=== PATIENT | female | born 1960 | race Caucasian/White ===

== ENCOUNTER 2018-11-27 13:47 | Emergency (ER) | payer MEDICAID ==
--- NOTE | 2018-11-27 14:16 | ED Physician Chart ---
ED Chief Complaint/HPI - Patient Information Date Seen:: 11/27/18 Time Seen:: 13:50 Chief Complaint:: Fever History of Present Illness:: onset x 10 days of fever, painless red eyes, cough, S/T, and congestion; pt denies trauma, H/As, visual or gait changes, decreased vision, neck pain, C/P, SOB, Abd. Pain, A/N/V/D/C, chills, or urinary s/s; pt's last tetanus shot: < 5 years; UTD; pt is eating and urinating well; pt last urinated one hour [employer] Allergies:: Allergies Allergy/AdvReac Type Severity Reaction Status Date / Time amoxicillin Allergy Verified 05/29/16 15:52 Historian:: Patient Review:: Nurse's Note Reviewed, Old Chart Reviewed ED Review of Systems - Review of Systems General/Constitutional: Fever, No chills, No weight loss, No weakness, No diaphoresis, No edema, No loss of appetite Skin: No skin lesions, No rash, No bruising Head: No headache, No light-headedness Eyes: No loss of vision, No pain, No diplopia ENT: No earache, Nasal drainage, Sore throat, No tinnitus Neck: No neck pain, No swelling, No thyromegaly, No stiffness, No mass noted Cardio Vascular: No chest pain, No palpitations, No PND, No orthopnea, No edema Pulmonary: SOB, No cough, No sputum, No wheezing GI: No nausea, No vomiting, No diarrhea, No pain, No melena, No hematochezia, No constipation, No hematemesis G/U: No dysuria, No frequency, No hematuria, No nacturia Director Toxicology: No vaginal discharge, No abnormal vaginal bleed, No contraction Musculoskeletal: No bone or joint pain, No back pain, No muscle pain Endocrine: No polyuria, No polydipsia Psychiatric: No prior psych history, No depression, No anxiety, No suicidal ideation, No homicidal ideation, No auditory hallucination, No visual hallucination Hematopoietic: No bruising, No lymphadenopathy Allergic/Immuno: No urticaria, No angioedema Neurological: No syncope, No focal symptoms, No weakness, No paresthesia, No headache, No seizure, No dizziness, No confusion, No vertigo ED Past Medical History - Past Medical History Obtainable: Yes Past Medical History: HTN, Dyslipidemia, Thyroid disorder Family History: HTN Social History: Non Smoker, No Alcohol, No Drug Use, Single Surgical History: None Psychiatricy History: None Medication: Reviewed Family Medical History - Family Member Mother History Unknown: Yes ED Physical Exam - Physical Examination General/Constitutional: Awake, Well-developed, well-nourished, Alert, No distress, GCS 15, Non-toxic appearing, Ambulatory Head: Atraumatic Eyes: Lids, conjuctiva normal, PERRL, EOMI Other Eyes comments:: Va: 20/20 OU; Bilateral Conjunctival Injection; no FBs; Corneas: Clear; no abrasions; no FBs; PERRLA; no hyphemas; Fundi: benign; EOMs: WNL; LLL: WNL; no cellulitis Skin: Nl inspection, No rash, No skin lesions, No ecchymosis, Well hydrated, No lymphadenopathy ENMT: External ears, nose nl, TM canals nl, Nasal exam nl, Lips, teeth, gums nl , Tonsils nl Other ENMT comments:: Pharynx: Injected; no exudates; no abscesses; no FBs; + Nasal Congestion Neck: Nontender, Full ROM w/o pain, No JVD, No nuchal rigidity, No bruit, No mass, No stridor Other Neck comments:: supple; no meningeal signs; no cervical tenderness Respiratory: Nl effort/Exclusion, Clear to Auscultation, No Wheeze/Rhonchi/Rales Cardio Vascular: RRR, No murmur, gallop, rubs, NL S1 S2, Carotid/Femoral/Distal pulses equal bilaterally GI: No tenderness/rebounding/guarding, No organomegaly, No hernia, Normal BS's, Nondistended, No mass/bruits, No McBurney tenderness, Rectum exam nl Other GI comments:: no pulsatile masses : No CVA tenderness Extremities: No tenderness or effusion, Full ROM, normal strength in all extremities, No edema, Normal digits & nails Neuro/Psych: Alert/oriented, DTR's symmetric, Normal sensory exam, Normal motor strength, Judgement/insight normal, Mood normal, Normal gait, No focal deficits Other Neuro/Psych comments:: no focal signs Misc: Normal back, No paraspinal tenderness ED Labs/Radiology/EKG Results - Lab Results Comments:: Reviewed - Radiology Results Comments:: CXR: NAD - EKG Interpretations EKG Time:: 14:39 Rate & Rhythm: 81; NSR Comments:: old ASMI; non-specific st-t changes ED Septic Shock - . Is Septic Shock (SBP<90, OR Lactate>4 mmol\L) present?: No ED Reassessment (Disposition) - Reassessment Reassessment:: pt tolerated po fluids well in ER; pt is asymptomatic upon discharge Reassessment Condition:: Improved - Diagnosis Diagnosis:: Sore Throat; Pharyngitis; Cough; Conjunctivitis; Red Eyes; Bronchitis; Congestion; Sinusitis; Fever; URI - Aftercare/Follow up Instructions Aftercare/Follow-Up Instructions:: Counseled pt regarding lab results/diagnosis & need follow up, Refer to Discharge Instructions, Counseled pt & family regarding lab results/diagnosis & need follow up Medication Prescribed:: Rx: Azithromycin/Z-Pack (#6); Tobramycin Ophthalmic Eye Drops: one drop OU qid x 7 days; Tylenol/Cool Mist Vaporizer/Phenergan Cough Syrup/Salt Water Gargles: take all medications as prescribed; Fluids - Patient Disposition Discharge/Transfer:: Home Accepting Physician:: Dr. Donis notified Time Called:: 1600 Time Responded:: 16:00 Condition at Disposition:: Stable, Improved (X-Rays Instructions; RTER prn if existing s/s reoccur and/or get worse and/or any other new s/s occur; ACIs given for all above Dx; Refer to [employer]/Senior [employer]iation Protection Technician JAMES; F/U with PMD in one day or prn; RTER prn if concerned)
[2018-11-27] MEDS ORDERED: Azithromycin 500 MG in Sodium Chloride 0.9% 250 ML IV ONE (14:19)
[2018-11-27] MEDS ORDERED: Sodium Chloride 0.9% 1,000 ML IV ONE (14:19)
[2018-11-27 15:00] LABS: EOSINOPHILE ABSOLUTE 0.1 Th/cmm (0.1-0.4)
[2018-11-27 15:03] LABS: % BASOPHILS 1.9 % (0.0-2.0); % EOSINOPHILS 1.1 % (0.0-5.0); % LYMPHOCYTES 10.4 % (20.0-50.0); % MONOCYTES 5.6 % (2.0-10.0); BASOPHILE ABSOLUTE 0.2 Th/cumm (0-0.2); HEMATOCRIT 40.7 % (41.0-60); HEMOGLOBIN 13.7 gm/dL (12-16); MEAN CORPUSCULAR HEMOGLOBIN 35.3 pg (27.0-31.0); MEAN CORPUSCULAR HGB CONC 33.6 pg (28.0-36.0); MEAN PLATELET VOLUME 7.9 fl; MONOCYTE ABSOLUTE 0.5 Th/cmm (0.3-1.0); NEUTROPHILE ABSOLUTE 7.6 Th/cmm (1.8-8.0); PLATELET COUNT 288 Th/cmm (150-400); RED BLOOD COUNT 3.87 Mil/cmm (3.80-5.10); RED CELL DISTRIBUTION WIDTH 12.4 % (11.5-20.0); WHITE BLOOD COUNT 9.4 Th/cmm (4.8-10.8)
[2018-11-27 15:06] LABS: URINE SOURCE MIDSTREAM
[2018-11-27 15:12] LABS: URINE BILIRUBIN NEGATIVE (NEGATIVE); URINE BLOOD NEGATIVE (NEGATIVE); URINE GLUCOSE (UA) NEGATIVE (NEGATIVE); URINE KETONE NEGATIVE (NEGATIVE); URINE LEUKOCYTE ESTERASE NEGATIVE (NEGATIVE); URINE NITRATE NEGATIVE (NEGATIVE); URINE PROTEIN NEGATIVE (NEGATIVE); URINE UROBILINOGEN 0.2 E.U./dL (0.2 - 1.0)
[2018-11-27 15:20] LABS: ALB/GLOB RATIO 1.6 (1.0-1.8); ALBUMIN 4.3 gm/dL (3.7-5.3); ALKALINE PHOSPHATASE 112 U/L (34-104); AMYLASE SERUM 49 U/L (29-103); ANION GAP 13.2 (7.0-16.0); BILIRUBIN,TOTAL 0.6 mg/dL (0.3-1.0); BUN - UREA NITROGEN 10 mg/dL (7-25); CALCIUM SERUM 9.5 mg/dL (8.6-10.3); CARBON DIOXIDE 26.6 mEq/L (21.0-31.0); CHLORIDE 102 mEq/L (98-107); CREATININE - SERUM 0.6 mg/dL (0.6-1.2); CREATININE KINASE 394 U/L (30-223); GFR AFRICAN-AMERICAN > 60.0 ml/min (>90); GFR NON AFRICAN-AMERICAN > 60.0 ml/min; GLUCOSE 99 mg/dL (70-105); LIPASE 16 U/L (11-82); POTASSIUM SERUM 3.8 mEq/L (3.5-5.1); SGOT 34 U/L (13-39); SGPT/ALT 26 U/L (7-52); SODIUM SERUM 138 mEq/L (136-145)
[2018-11-27 15:27] LABS: MEAN CELL VOLUME 105.1 fl (81-100)
[2018-11-27 15:41] LABS: TROP I < 0.01 ng/mL (0.01-0.05)
[2018-11-27 15:43] LABS: URINE CLARITY CLEAR (CLEAR); URINE COLOR YELLOW; URINE MICROSCOPIC INDICATED? YES
[2018-11-27 15:45] LABS: URINE BACTERIA FEW /hpf (NONE SEEN); URINE EPITHELIAL CELLS MODERATE /lpf (FEW); URINE RBC 0-2 /hpf (0-5)
[2018-11-27 15:56] LABS: PROTHROMBIN TIME (TEST) 8.9 SECONDS (9.5-11.5)
[2018-11-27 15:59] LABS: INR < 0.86 (0.5-1.4)
[2018-11-27] MEDS ORDERED: Levofloxacin 500mg/100mL 500 MG/100 ML BAG IV ONE ×2 (16:16→17:10)
--- NOTE | 2018-11-28 08:05 | Diagnostic Imaging Report ---
Portable chest x-ray Time: 1631 History: Cough Allowing for portable technique the heart size is normal. No focal pulmonary parenchymal processes. No hilar or mediastinal abnormalities. Impression: No acute abnormalities.
== END 2018-11-27 18:16 | disposition home or self-care (01) ==
LOC: ER 13:47
DX: J40 Bronchitis, not specified as acute or chronic (principal); J32.9 Chronic sinusitis, unspecified; J06.9 Acute upper respiratory infection, unspecified; H10.9 Unspecified conjunctivitis; I10 Essential (primary) hypertension; E78.5 Hyperlipidemia, unspecified; E07.9 Disorder of thyroid, unspecified; Z88.0 Allergy status to penicillin
CPT/HCPCS: 99284; 96365; 96367; 93005; 71045; 84484; 36415; 83605; 85025; 85610; 85730; 81001; 82150; 82550; 82553; 84703; 81025; 83690; 80053; 87040 ×2; J1956; J0456; J7030; Z7502